=== PATIENT | female | born 1990 ===

== ENCOUNTER 2023-04-06 03:06 | Emergency (ER) | payer SELFPAY | END 2023-04-06 05:36 | disposition home or self-care (01) | LOC: ERS 03:06 | DX: K02.9 Dental caries, unspecified (principal); Z87.891 Personal history of nicotine dependence | CPT/HCPCS: 99282 ==

== ENCOUNTER 2023-05-30 09:35 | Emergency (ER) | payer BC ==
[2023-05-30 12:47] LABS: SARS-CoV-2 NAA Rapid Test Not Detected (NotDetected)
== END 2023-05-30 10:08 | disposition home or self-care (01) ==
LOC: ERS 09:35
DX: Z20.822 Contact with and (suspected) exposure to COVID-19 (principal); I10 Essential (primary) hypertension
CPT/HCPCS: 99283